=== PATIENT | female | born 1995 | race Caucasian/White ===

== ENCOUNTER 2017-10-15 03:23 | Emergency (ER) | payer OTHER ==
[~2017-10-15] VITALS: Ht 157.5 cm; Wt 60.0 kg
[~2017-10-15 03:23] MED LIST: DOXY100C26 PO
[2017-10-15] MEDS ORDERED: ONDANSETRON 2MG/ML, 2ML ONE (03:36)
[2017-10-15] MEDS ORDERED: TESTOSTERONE (03:39)
[2017-10-15] MEDS ORDERED: SODIUM CHLORIDE 0.9% 1,000ML IVBOLUS ONE (04:00)
[2017-10-15] MEDS ORDERED: ONDANSETRON 2MG/ML, 2ML IVPush ONE (04:00)
[2017-10-15 06:24] VITALS: BP 106/60
== END 2017-10-15 06:40 | disposition home or self-care (01) ==
LOC: ED 03:49
DX: F10.121 Alcohol abuse with intoxication delirium (principal)
CPT/HCPCS: 36415; 70450; 80307; 96361; 96374; 99285; J2405; J7030; G0479